=== PATIENT | male | born 1965 | race Caucasian/White ===

== ENCOUNTER 2021-06-24 15:01 | Emergency (ER) | payer BC, OTHER ==
[2021-06-24 15:19] VITALS: TEMP 98.4
[2021-06-24] MEDS ORDERED: SODIUM CHLORIDE 0.9% 500 ML 500 ML IV STA (16:26)
[2021-06-24] MEDS ORDERED: HYDROmorphone 1 MG/ML 1 ML SYRINGE IVP STA (16:26)
[2021-06-24] MEDS ORDERED: ONDANSETRON 4 MG/2 ML VIAL IVP STA (16:26)
[2021-06-24] MEDS ORDERED: PANTOPRAZOLE 40 MG/10 ML VIAL IVP STA (16:27)
[2021-06-24 16:51] LABS: Anisocytosis Slight; Basophils % (A) 0 %; Eosinophils % (A) 0 %; HCT 30.9 % (39.0-53.0); Hypochromasia Slight; Lymphocytes # (A) 0.9 k/uL (1.0-4.8); Lymphocytes % (A) 7 %; MCH 32.3 pg (25.0-35.0); MCHC 32.2 g/dL (31.0-37.0); MCV 100.2 fL (80.0-100.0); Macrocytosis Moderate; Mean Platelet Volume 7.6; Monocytes # (A) 0.6 k/uL (0-1.0); Monocytes % (A) 5 %; Neutrophils % (A) 86 %; Platelet Count 232 k/uL (150-450); RBC 3.09 m/uL (4.30-5.90); RDW 18.5 % (11.5-15.5); WBC 12.9 k/uL (3.8-10.6)
[2021-06-24 16:54] LABS: Appearance,Urine Clear (Clear); Bilirubin,Urine Negative (Negative); Blood,Urine Negative (Negative); Color,Urine Yellow; Glucose,Urine (UA) Negative (Negative); Ketones,Urine Negative (Negative); Leukocyte Esterase,Urine Negative (Negative); Nitrite,Urine Negative (Negative); PH, Urine 6.5 (5.0-8.0); Protein,Urine Negative (Negative); Specific Gravity,Urine 1.008 (1.001-1.035); Urobilinogen,Urine <2.0 mg/dL (<2.0)
[2021-06-24 16:59] VITALS: RESP 22
[2021-06-24 17:00] LABS: ALT 11 U/L (4-49); AST 24 U/L (17-59); African American GFR (CKD) >90 (>60 ml/min/1.73 sqM); Albumin 3.6 g/dL (3.5-5.0); Alkaline Phosphatase 49 U/L (38-126); Anion Gap 7 mmol/L; Blood Urea Nitrogen 7 mg/dL (9-20); Calcium 8.3 mg/dL (8.4-10.2); Carbon Dioxide 27 mmol/L (22-30); Chloride 94 mmol/L (98-107); Glucose 136 mg/dL (74-99); Lipase 104 U/L (23-300); Non-African American GFR(CKD) >90 (>60 ml/min/1.73 sqM); Potassium 3.8 mmol/L (3.5-5.1); Sodium 128 mmol/L (137-145); Total Bilirubin 0.4 mg/dL (0.2-1.3); Total Protein 6.3 g/dL (6.3-8.2)
--- NOTE | 2021-06-24 17:29 | ED ---
Abdominal Pain HPI - General Chief Complaint: Abdominal Pain Stated Complaint: irregular labs Time Seen by Provider: 06/24/21 16:09 Source: patient Mode of arrival: wheelchair Limitations: no limitations - History of Present Illness Initial Comments: 55 year-old male patient presented to the emergency department today for evaluation of upper abdominal pain and nausea. Patient states symptoms have been going on for the last 2 weeks but worsened over the last couple of days. Denies radiation of the pain through to his back. States pain worsens with eating certain foods. He was seen and evaluated at [facility] last night and it has CT abdomen and pelvis which showed some constipation no other abnormalities. He did have decreased hemoglobin and positive occult blood at their facility. They wanted to transfer him for GI evaluation but he declined transfer, so they recommended he come to this facility so he could be evaluated by GI. Does admit to drinking alcohol daily. Denies history of abdominal surgery. He is a current smoker, maintained on 4 L nasal cannula for COPD. - Related Data Home Medications Medication Instructions Recorded Confirmed ALPRAZolam [Xanax] 1 mg PO BID PRN 10/30/14 06/24/21 Albuterol Nebulized [Ventolin 2.5 mg INHALATION RT-QID 10/30/14 06/24/21 Nebulized] HYDROcodone/APAP 7.5-325MG [[place] 1 tab PO QID PRN 10/30/14 06/24/21 7.5-325] Metoprolol Succinate [Toprol XL] 25 mg PO DAILY 10/30/14 06/24/21 Simvastatin [Zocor] 40 mg PO DAILY 10/30/14 06/24/21 Albuterol Sulfate [Proair Hfa] 2 puff INHALATION RT-Q4H PRN 06/24/21 06/24/21 Fluticasone Propionate [Flovent 2 puff INHALATION RT-BID 06/24/21 06/24/21 Hfa 220 mcg] Montelukast [Singulair] 10 mg PO DAILY 06/24/21 06/24/21 Nicotine 7Mg/24Hr Patch [Habitrol] 1 patch TRANSDERM DAILY PRN 06/24/21 06/24/21 predniSONE [Deltasone] 10 mg PO BID 06/24/21 06/24/21 Allergies Allergy/AdvReac Type Severity Reaction Status Date / Time KAETLYN Inhibitors Allergy Anaphylaxis Verified 06/24/21 16:50 Review of Systems ROS Statement: Those systems with pertinent positive or pertinent negative responses have been documented in the HPI. ROS Other: All systems not noted in ROS Statement are negative. Past Medical History Past Medical History: Asthma, COPD, Hyperlipidemia, Hypertension, Musculoskeletal Disorder, Osteoarthritis (OA) Additional Past Medical History / Comment(s): CARDIAC ANEURYSM, ARTHRITIS RT WRIST & ANKLE, HX OF BACK FX., FREQUENT DIARRHEA-BLOOD IN STOOL History of Any Multi-Drug Resistant Organisms: None Reported Past Surgical History: Hernia Repair, Orthopedic Surgery Additional Past Surgical History / Comment(s): MULTIPLE RT WRIST SURGERYS AND THEN A FUSION., MULTIPLE RT HEEL SURGERYS AND THEN A FUSION., ING HERNIA REPAIR, LIPOMA (11/2014). Past Anesthesia/Blood Transfusion Reactions: No Reported Reaction Past Psychological History: Anxiety Smoking Status: Current every day smoker Past Alcohol Use History: Daily Past Drug Use History: None Reported - Past Family History Father Family Medical History: Myocardial Infarction ([place]) Mother Family Medical History: Myocardial Infarction ([place]) General Exam Limitations: no limitations General appearance: alert, in no apparent distress, other (This is a well- developed, well-nourished adult male in no acute distress.) Eye exam: Present: normal appearance, PERRL, EOMI. Absent: scleral icterus, conjunctival injection, periorbital swelling Respiratory exam: Present: normal lung sounds bilaterally. Absent: respiratory distress, wheezes, rales, rhonchi, stridor Cardiovascular Exam: Present: regular rate, normal rhythm, normal heart sounds. Absent: systolic murmur, diastolic murmur, rubs, gallop, clicks GI/Abdominal exam: Present: soft, tenderness (Midepigastric), normal bowel sounds. Absent: distended, guarding, rebound, rigid Neurological exam: Present: alert, oriented X3, CN II-XII intact Psychiatric exam: Present: normal affect, normal mood Skin exam: Present: warm, dry, intact, normal color. Absent: rash Course Vital Signs 06/24/21 06/24/21 06/24/21 15:15 16:58 18:09 Temperature 98.4 F Pulse Rate 124 H 105 H 92 Respiratory 20 22 22 Rate Blood Pressure 102/68 105/84 126/81 O2 Sat by Pulse 97 98 96 Oximetry Medical Decision Making - Medical Decision Making 55-year-old male patient presented to the emergency department today for evaluation of midepigastric abdominal pain. Physical examination did reveal midepigastric tenderness. Labs reviewed and did reveal decreased hemoglobin. Lactic acid was 3.8. He did have CT abdomen and pelvis at [facility] yesterday and showed evidence for constipation, his occult blood was positive at the hospital. He does report dark stools. Is taking Pepto-Bismol. We will admit to see GI however we do not have GI specialty at this time. He'll be transferred to [facility] for further evaluation. Patient is agr eeable this plan. Dr. Ahuja is accepting. - Lab Data Result diagrams: 06/24/21 16:39 06/24/21 16:39 Lab Results 06/24/21 06/24/21 06/24/21 Range/Units 16:39 16:39 16:39 WBC 12.9 H (3.8-10.6) k/uL RBC 3.09 L (4.30-5.90) m/uL Hgb 10.0 L (13.0-17.5) gm/dL Hct 30.9 L (39.0-53.0) % MCV 100.2 H (80.0-100.0) fL MCH 32.3 (25.0-35.0) pg MCHC 32.2 (31.0-37.0) g/dL RDW 18.5 H (11.5-15.5) % Plt Count 232 (150-450) k/uL MPV 7.6 Neutrophils % 86 % Lymphocytes % 7 % Monocytes % 5 % Eosinophils % 0 % Basophils % 0 % Neutrophils # 11.0 H (1.3-7.7) k/uL Lymphocytes # 0.9 L (1.0-4.8) k/uL Monocytes # 0.6 (0-1.0) k/uL Eosinophils # 0.0 (0-0.7) k/uL Basophils # 0.0 (0-0.2) k/uL Hypochromasia Slight Anisocytosis Slight Macrocytosis Moderate Sodium 128 L (137-145) mmol/L Potassium 3.8 (3.5-5.1) mmol/L Chloride 94 L (98-107) mmol/L Carbon Dioxide 27 (22-30) mmol/L Anion Gap 7 mmol/L BUN 7 L (9-20) mg/dL Creatinine 0.52 L (0.66-1.25) mg/dL Est GFR (CKD-EPI)AfAm >90 (>60 ml/min/1.73 sqM) Est GFR (CKD-EPI)NonAf >90 (>60 ml/min/1.73 sqM) Glucose 136 H (74-99) mg/dL Lactic Ac Sepsis Rflx Plasma Lactic Acid Jorge Luis (0.7-2.0) mmol/L Calcium 8.3 L (8.4-10.2) mg/dL Total Bilirubin 0.4 (0.2-1.3) mg/dL AST 24 (17-59) U/L ALT 11 (4-49) U/L Alkaline Phosphatase 49 (38-126) U/L Total Protein 6.3 (6.3-8.2) g/dL Albumin 3.6 (3.5-5.0) g/dL Lipase 104 (23-300) U/L Urine Color Yellow Urine Appearance Clear (Clear) Urine pH 6.5 (5.0-8.0) Ur Specific [place] 1.008 (1.001-1.035) Urine Protein Negative (Negative) Urine Glucose (UA) Negative (Negative) Urine Ketones Negative (Negative) Urine Blood Negative (Negative) Urine Nitrite Negative (Negative) Urine Bilirubin Negative (Negative) Urine Urobilinogen <2.0 (<2.0) mg/dL Ur Leukocyte Esterase Negative (Negative) 06/24/21 06/24/21 Range/Units 16:39 17:10 WBC (3.8-10.6) k/uL RBC (4.30-5.90) m/uL Hgb (13.0-17.5) gm/dL Hct (39.0-53.0) % MCV (80.0-100.0) fL MCH (25.0-35.0) pg MCHC (31.0-37.0) g/dL RDW (11.5-15.5) % Plt Count (150-450) k/uL MPV Neutrophils % % Lymphocytes % % Monocytes % % Eosinophils % % Basophils % % Neutrophils # (1.3-7.7) k/uL Lymphocytes # (1.0-4.8) k/uL Monocytes # (0-1.0) k/uL Eosinophils # (0-0.7) k/uL Basophils # (0-0.2) k/uL Hypochromasia Anisocytosis Macrocytosis Sodium (137-145) mmol/L Potassium (3.5-5.1) mmol/L Chloride (98-107) mmol/L Carbon Dioxide (22-30) mmol/L Anion Gap mmol/L BUN (9-20) mg/dL Creatinine (0.66-1.25) mg/dL Est GFR (CKD-EPI)AfAm (>60 ml/min/1.73 sqM) Est GFR (CKD-EPI)NonAf (>60 ml/min/1.73 sqM) Glucose (74-99) mg/dL Lactic Ac Sepsis Rflx Y Plasma Lactic Acid Jorge Luis 3.8 H* (0.7-2.0) mmol/L Calcium (8.4-10.2) mg/dL Total Bilirubin (0.2-1.3) mg/dL AST (17-59) U/L ALT (4-49) U/L Alkaline Phosphatase (38-126) U/L Total Protein (6.3-8.2) g/dL Albumin (3.5-5.0) g/dL Lipase (23-300) U/L Urine Color Urine Appearance (Clear) Urine pH (5.0-8.0) Ur Specific [place] (1.001-1.035) Urine Protein (Negative) Urine Glucose (UA) (Negative) Urine Ketones (Negative) Urine Blood (Negative) Urine Nitrite (Negative) Urine Bilirubin (Negative) Urine Urobilinogen (<2.0) mg/dL Ur Leukocyte Esterase (Negative) Disposition Clinical Impression: Midepigastric pain, GI bleed Disposition: ADMITTED IP TO THIS [facility] Condition: Serious Referrals: Sekou Vasquez MD [Primary Care Provider] - 1-2 days Decision to Admit Reason: Admit from EC Decision Date: 06/24/21 Decision Time: 20:21
[2021-06-24 18:12] VITALS: BP 126/81; PULSE 92
[2021-06-24] MEDS ORDERED: LORazepam 2 MG/ML INJ IV STA (18:18)
[2021-06-24] MEDS ORDERED: NICOTINE 21MG/24HR PATCH TRANSDERM STA (18:18)
== END 2021-06-24 21:27 | disposition other institution (70) ==
LOC: EC 15:01
DX: R10.13 Epigastric pain (principal); J44.9 Chronic obstructive pulmonary disease, unspecified; E78.5 Hyperlipidemia, unspecified; M19.90 Unspecified osteoarthritis, unspecified site; I10 Essential (primary) hypertension; F41.9 Anxiety disorder, unspecified; F17.200 Nicotine dependence, unspecified, uncomplicated; Z72.89 Other problems related to lifestyle; Z79.51 Long term (current) use of inhaled steroids
CPT/HCPCS: 36415; 80053; 83605; 83690; 85025; 81003; 87635; 99284; 96374; 96375 ×3; S4990; J2060; J2405; J1170; C9113

== ENCOUNTER 2021-06-29 21:42 | Emergency (ER) | payer OTHER ==
[2021-06-29 22:11] VITALS: TEMP 98.2
[2021-06-30] MEDS ORDERED: ALPRAZolam 1 MG TAB PO STA (01:20)
[2021-06-30] MEDS ORDERED: HYDROcodone/APAP 7.5-325MG 1 EACH TAB PO ONE (01:20)
[2021-06-30 01:52] LABS: Anisocytosis Slight; Basophils # (A) 0.1 k/uL (0-0.2); Basophils % (A) 1 %; Eosinophils # (A) 0.1 k/uL (0-0.7); Eosinophils % (A) 1 %; HCT 31.2 % (39.0-53.0); HGB 10.2 gm/dL (13.0-17.5); Hypochromasia Slight; Lymphocytes # (A) 1.6 k/uL (1.0-4.8); Lymphocytes % (A) 22 %; MCH 33.1 pg (25.0-35.0); MCHC 32.5 g/dL (31.0-37.0); MCV 101.9 fL (80.0-100.0); Macrocytosis Moderate; Mean Platelet Volume 9.1; Monocytes # (A) 0.9 k/uL (0-1.0); Monocytes % (A) 12 %; Neutrophils # (A) 4.6 k/uL (1.3-7.7); Neutrophils % (A) 61 %; Platelet Count 219 k/uL (150-450); RBC 3.06 m/uL (4.30-5.90); RDW 18.2 % (11.5-15.5); WBC 7.6 k/uL (3.8-10.6)
--- NOTE | 2021-06-30 01:55 | XR ---
EXAMINATION TYPE: XR chest 1V portable DATE OF EXAM: 06/30/2021 COMPARISON: NONE HISTORY: Pain TECHNIQUE: Single view FINDINGS: There is some atelectasis at the left lung base. There is no heart failure. Heart size is n ormal. There are chest leads. The bony thorax is intact. IMPRESSION: There is some elevated left diaphragm with some atelectasis left lung base without change compared to CT scan of 06/23/2021. Normal heart.
[2021-06-30 02:11] LABS: Appearance,Urine Clear (Clear); Bilirubin,Urine Negative (Negative); Blood,Urine Negative (Negative); Color,Urine Yellow; Glucose,Urine (UA) Negative (Negative); Ketones,Urine Negative (Negative); Leukocyte Esterase,Urine Negative (Negative); Nitrite,Urine Negative (Negative); PH, Urine 8.5 (5.0-8.0); Protein,Urine Negative (Negative); Specific Gravity,Urine 1.009 (1.001-1.035); Urobilinogen,Urine <2.0 mg/dL (<2.0)
[2021-06-30 02:12] LABS: ALT 9 U/L (4-49); AST 30 U/L (17-59); African American GFR (CKD) >90 (>60 ml/min/1.73 sqM); Albumin 3.4 g/dL (3.5-5.0); Alkaline Phosphatase 57 U/L (38-126); Anion Gap 7 mmol/L; Blood Urea Nitrogen 3 mg/dL (9-20); Calcium 8.9 mg/dL (8.4-10.2); Carbon Dioxide 30 mmol/L (22-30); Chloride 95 mmol/L (98-107); Glucose 87 mg/dL (74-99); Non-African American GFR(CKD) >90 (>60 ml/min/1.73 sqM); Potassium 3.9 mmol/L (3.5-5.1); Sodium 132 mmol/L (137-145); Total Bilirubin 0.7 mg/dL (0.2-1.3); Total Protein 6.1 g/dL (6.3-8.2)
[2021-06-30] MEDS ORDERED: FUROSEMIDE 10 MG/ML 4 ML VIAL IV STA (02:35)
[2021-06-30 04:04] VITALS: BP 114/85; PULSE 88; RESP 17
--- NOTE | 2021-06-30 04:07 | ED ---
Extremity Problem HPI - General Chief complaint: Extremity Problem,Nontraumatic Stated complaint: Leg Swelling, Edema Time Seen by Provider: 06/30/21 00:50 Source: patient Mode of arrival: wheelchair Limitations: no limitations - History of Present Illness Initial comments: Patient is a 55-year-old man who presents to have evaluation of bilateral lower extremity edema. The patient states that he had been admitted on the hospital on June 24, staying until 2 days ago to have an upper endoscopy. The patient notes that his swelling had started over that period of time and he went home with the edema. Patient states there is just a little bit of shortness of breath if he lies flat. Patient also notes she has recently stopped drinking alcohol. MD Complaint: extremity swelling -: days(s) Location: bilateral lower extremity History of Same: No Radiation: none Quality: dull Consistency: constant Improves with: nothing Associated Symptoms: denies other symptoms - Related Data Home Medications Medication Instructions Recorded Confirmed ALPRAZolam [Xanax] 1 mg PO BID PRN 10/30/14 06/24/21 Albuterol Nebulized [Ventolin 2.5 mg INHALATION RT-QID 10/30/14 06/24/21 Nebulized] HYDROcodone/APAP 7.5-325MG [[place] 1 tab PO QID PRN 10/30/14 06/24/21 7.5-325] Metoprolol Succinate [Toprol XL] 25 mg PO DAILY 10/30/14 06/24/21 Simvastatin [Zocor] 40 mg PO DAILY 10/30/14 06/24/21 Albuterol Sulfate [Proair Hfa] 2 puff INHALATION RT-Q4H PRN 06/24/21 06/24/21 Fluticasone Propionate [Flovent 2 puff INHALATION RT-BID 06/24/21 06/24/21 Hfa 220 mcg] Montelukast [Singulair] 10 mg PO DAILY 06/24/21 06/24/21 Nicotine 7Mg/24Hr Patch [Habitrol] 1 patch TRANSDERM DAILY PRN 06/24/21 06/24/21 predniSONE [Deltasone] 10 mg PO BID 06/24/21 06/24/21 Previous Rx's Medication Instructions Recorded Furosemide [Lasix] 20 mg PO DAILY #10 tablet 06/30/21 Allergies Allergy/AdvReac Type Severity Reaction Status Date / Time KATELYN Inhibitors Allergy Anaphylaxis Verified 06/29/21 22:11 Review of Systems ROS Statement: Those systems with pertinent positive or pertinent negative responses have been documented in the HPI. ROS Other: All systems not noted in ROS Statement are negative. Constitutional: Denies: fever, chills, weakness Respiratory: Denies: cough, dyspnea Cardiovascular: Reports: orthopnea, edema. Denies: chest pain, palpitations, syncope Gastrointestinal: Denies: abdominal pain, nausea, vomiting, diarrhea, constipation, melena, hematochezia Genitourinary: Denies: dysuria, hematuria Musculoskeletal: Denies: back pain Skin: Denies: rash Neurological: Denies: headache, weakness Past Medical History Past Medical History: Asthma, COPD, Hyperlipidemia, Hypertension, Musculoskeletal Disorder, Osteoarthritis (OA) Additional Past Medical History / Comment(s): CARDIAC ANEURYSM, ARTHRITIS RT WRIST & ANKLE, HX OF BACK FX., FREQUENT DIARRHEA-BLOOD IN STOOL History of Any Multi-Drug Resistant Organisms: None Reported Past Surgical History: Hernia Repair, Orthopedic Surgery Additional Past Surgical History / Comment(s): MULTIPLE RT WRIST SURGERYS AND THEN A FUSION., MULTIPLE RT HEEL SURGERYS AND THEN A FUSION., ING HERNIA REPAIR, LIPOMA (11/2014). Past Anesthesia/Blood Transfusion Reactions: No Reported Reaction Past Psychological History: Anxiety Smoking Status: Current every day smoker Past Alcohol Use History: Daily Past Drug Use History: None Reported - Past Family History Father Family Medical History: Myocardial Infarction ([place]) Mother Family Medical History: Myocardial Infarction ([place]) General Exam Limitations: no limitations General appearance: alert, in no apparent distress Head exam: Present: atraumatic, normocephalic Eye exam: Present: normal appearance. Absent: scleral icterus, conjunctival injection Neck exam: Present: normal inspection Respiratory exam: Present: normal lung sounds bilaterally. Absent: respiratory distress, wheezes, rales, rhonchi, stridor Cardiovascular Exam: Present: regular rate, normal rhythm, normal heart sounds. Absent: systolic murmur, diastolic murmur, rubs, gallop GI/Abdominal exam: Present: soft. Absent: distended, tenderness, guarding, rebound, rigid, mass Extremities exam: Present: normal inspection, normal capillary refill, pedal edema. Absent: calf tenderness Back exam: Present: normal inspection. Absent: CVA tenderness (R), CVA tende rness (L) Neurological exam: Present: alert Skin exam: Present: warm, dry, intact, normal color. Absent: rash Course Vital Signs 06/29/21 06/30/21 06/30/21 22:06 00:00 00:20 Temperature 98.2 F Pulse Rate 108 H 91 Respiratory 18 22 21 Rate Blood Pressure 121/81 131/102 O2 Sat by Pulse 100 100 Oximetry 06/30/21 06/30/21 03:20 03:40 Temperature Pulse Rate 82 88 Respiratory 17 17 Rate Blood Pressure 116/86 114/85 O2 Sat by Pulse 99 99 Oximetry Medical Decision Making - Medical Decision Making Patient's 55-year-old man presenting with bilateral leg edema. This seems correlate with the IV fluid he recently had. Suspect the patient also has a little bit of underlying liver dysfunction and therefore low protein levels. I discussed stopping drinking. We'll give patient Lasix as outpatient and close follow-up. He states he would rather go home than stay in the hospital as she was just in. Return parameters discussed. - Lab Data Result diagrams: 06/30/21 00:00 06/30/21 00:00 Lab Results 06/30/21 06/30/21 06/30/21 Range/Units 00:00 00:00 00:00 WBC 7.6 (3.8-10.6) k/uL RBC 3.06 L (4.30-5.90) m/uL Hgb 10.2 L (13.0-17.5) gm/dL Hct 31.2 L (39.0-53.0) % MCV 101.9 H (80.0-100.0) fL MCH 33.1 (25.0-35.0) pg MCHC 32.5 (31.0-37.0) g/dL RDW 18.2 H (11.5-15.5) % Plt Count 219 (150-450) k/uL MPV 9.1 Neutrophils % 61 % Lymphocytes % 22 % Monocytes % 12 % Eosinophils % 1 % Basophils % 1 % Neutrophils # 4.6 (1.3-7.7) k/uL Lymphocytes # 1.6 (1.0-4.8) k/uL Monocytes # 0.9 (0-1.0) k/uL Eosinophils # 0.1 (0-0.7) k/uL Basophils # 0.1 (0-0.2) k/uL Hypochromasia Slight Anisocytosis Slight Macrocytosis Moderate D-Dimer 1.36 H (<0.60) mg/L FEU Sodium (137-145) mmol/L Potassium (3.5-5.1) mmol/L Chloride (98-107) mmol/L Carbon Dioxide (22-30) mmol/L Anion Gap mmol/L BUN (9-20) mg/dL Creatinine (0.66-1.25) mg/dL Est GFR (CKD-EPI)AfAm (>60 ml/min/1.73 sqM) Est GFR (CKD-EPI)NonAf (>60 ml/min/1.73 sqM) Glucose (74-99) mg/dL Calcium (8.4-10.2) mg/dL Total Bilirubin (0.2-1.3) mg/dL AST (17-59) U/L ALT (4-49) U/L Alkaline Phosphatase (38-126) U/L Troponin I (0.000-0.034) ng/mL NT-Pro-B Natriuret Pep pg/mL Total Protein (6.3-8.2) g/dL Albumin (3.5-5.0) g/dL Urine Color Yellow Urine Appearance Clear (Clear) Urine pH 8.5 H (5.0-8.0) Ur Specific [place] 1.009 (1.001-1.035) Urine Protein Negative (Negative) Urine Glucose (UA) Negative (Negative) Urine Ketones Negative (Negative) Urine Blood Negative (Negative) Urine Nitrite Negative (Negative) Urine Bilirubin Negative (Negative) Urine Urobilinogen <2.0 (<2.0) mg/dL Ur Leukocyte Esterase Negative (Negative) 06/30/21 06/30/21 06/30/21 Range/Units 00:00 00:00 00:00 WBC (3.8-10.6) k/uL RBC (4.30-5.90) m/uL Hgb (13.0-17.5) gm/dL Hct (39.0-53.0) % MCV (80.0-100.0) fL MCH (25.0-35.0) pg MCHC (31.0-37.0) g/dL RDW (11.5-15.5) % Plt Count (150-450) k/uL MPV Neutrophils % % Lymphocytes % % Monocytes % % Eosinophils % % Basophils % % Neutrophils # (1.3-7.7) k/uL Lymphocytes # (1.0-4.8) k/uL Monocytes # (0-1.0) k/uL Eosinophils # (0-0.7) k/uL Basophils # (0-0.2) k/uL Hypochromasia Anisocytosis Macrocytosis D-Dimer (<0.60) mg/L FEU Sodium 132 L (137-145) mmol/L Potassium 3.9 (3.5-5.1) mmol/L Chloride 95 L (98-107) mmol/L Carbon Dioxide 30 (22-30) mmol/L Anion Gap 7 mmol/L BUN 3 L (9-20) mg/dL Creatinine 0.44 L (0.66-1.25) mg/dL Est GFR (CKD-EPI)AfAm >90 (>60 ml/min/1.73 sqM) Est GFR (CKD-EPI)NonAf >90 (>60 ml/min/1.73 sqM) Glucose 87 (74-99) mg/dL Calcium 8.9 (8.4-10.2) mg/dL Total Bilirubin 0.7 (0.2-1.3) mg/dL AST 30 (17-59) U/L ALT 9 (4-49) U/L Alkaline Phosphatase 57 (38-126) U/L Troponin I <0.012 (0.000-0.034) ng/mL NT-Pro-B Natriuret Pep 954 pg/mL Total Protein 6.1 L (6.3-8.2) g/dL Albumin 3.4 L (3.5-5.0) g/dL Urine Color Urine Appearance (Clear) Urine pH (5.0-8.0) Ur Specific [place] (1.001-1.035) Urine Protein (Negative) Urine Glucose (UA) (Negative) Urine Ketones (Negative) Urine Blood (Negative) Urine Nitrite (Negative) Urine Bilirubin (Negative) Urine Urobilinogen (<2.0) mg/dL Ur Leukocyte Esterase (Negative) Disposition Clinical Impression: Edema Disposition: HOME SELF-CARE Condition: Stable Instructions (If sedation given, give patient instructions): Leg Edema (ED) Additional Instructions: As we discussed, follow with the specialist to have further studies into your liver function. Stop drinking any alcohol. Avoid using acetaminophen/Tylenol until you are cleared. Scheduled to have the duplex Doppler of the legs today. Prescriptions: Furosemide [Lasix] 20 mg PO DAILY #10 tablet Is patient prescribed a controlled substance at d/c from ED?: No Referrals: Sekou Vasquez MD [Primary Care Provider] - 1-2 days Sadie Srinivasan MD [STAFF PHYSICIAN] - 1-2 days
[2021-06-30] MEDS ORDERED: traMADol 50 MG STARTER PACK 3 TAB BTL PO STA (04:08)
[2021-06-30] MEDS ORDERED: ENOXAPARIN 60 MG/0.6 ML SYRINGE SQ STA (04:31)
== END 2021-06-30 04:52 | disposition home or self-care (01) ==
LOC: EC 21:42
DX: R60.0 Localized edema (principal); J44.9 Chronic obstructive pulmonary disease, unspecified; E78.5 Hyperlipidemia, unspecified; I10 Essential (primary) hypertension; M19.90 Unspecified osteoarthritis, unspecified site; F41.9 Anxiety disorder, unspecified; F17.200 Nicotine dependence, unspecified, uncomplicated
CPT/HCPCS: 99284; 96374; 96372; 36415; 85379; 83880; 80053; 84484; 85025; 81003; 71045; J1940; J1650

== ENCOUNTER 2022-07-28 17:00 | Emergency (ER) | payer OTHER ==
[2022-07-28 17:09] VITALS: TEMP 97.9
[2022-07-28 18:13] VITALS: BP 122/89; PULSE 76; RESP 20
[2022-07-28] MEDS ORDERED: SODIUM CHLORIDE 0.9% 500 ML 500 ML IV STA (18:13)
[2022-07-28] MEDS ORDERED: HYDROmorphone 0.5 MG/0.5 ML SYRINGE IVP STA (18:13)
[2022-07-28] MEDS ORDERED: SODIUM CHLORIDE 0.9% 1,000 ML IV STA (18:13)
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
[2022-07-28 18:51] LABS: African American GFR (CKD) >90 (>60 ml/min/1.73 sqM); Anion Gap 6 mmol/L; Blood Urea Nitrogen 3 mg/dL (9-20); Calcium 9.1 mg/dL (8.4-10.2); Carbon Dioxide 37 mmol/L (22-30); Chloride 97 mmol/L (98-107); Glucose 71 mg/dL (74-99); Non-African American GFR(CKD) >90 (>60 ml/min/1.73 sqM); Potassium 3.7 mmol/L (3.5-5.1); Sodium 140 mmol/L (137-145)
[2022-07-28 19:21] LABS: Basophils # (A) 0.1 k/uL (0-0.2); Basophils % (A) 1 %; Eosinophils # (A) 0.1 k/uL (0-0.7); Eosinophils % (A) 1 %; HCT 39.8 % (39.0-53.0); HGB 12.5 gm/dL (13.0-17.5); Hypochromasia Slight; Lymphocytes # (A) 1.8 k/uL (1.0-4.8); Lymphocytes % (A) 20 %; MCH 29.2 pg (25.0-35.0); MCHC 31.5 g/dL (31.0-37.0); MCV 92.8 fL (80.0-100.0); Mean Platelet Volume 11.6; Monocytes # (A) 0.8 k/uL (0-1.0); Monocytes % (A) 8 %; Neutrophils # (A) 6.1 k/uL (1.3-7.7); Neutrophils % (A) 67 %; Platelet Count 139 k/uL (150-450); RBC 4.29 m/uL (4.30-5.90); RDW 15.7 % (11.5-15.5); WBC 9.2 k/uL (3.8-10.6)
== END 2022-07-28 19:32 | disposition other institution (70) ==
LOC: EC 17:00
DX: T20.29XA Burn of second degree of multiple sites of head, face, and neck, initial encounter (principal); T31.0 Burns involving less than 10% of body surface; I10 Essential (primary) hypertension; E78.5 Hyperlipidemia, unspecified; J44.9 Chronic obstructive pulmonary disease, unspecified; M19.90 Unspecified osteoarthritis, unspecified site; F41.9 Anxiety disorder, unspecified; F17.200 Nicotine dependence, unspecified, uncomplicated; Z79.51 Long term (current) use of inhaled steroids; Z79.52 Long term (current) use of systemic steroids; Z79.899 Other long term (current) drug therapy; Z88.8 Allergy status to other drugs, medicaments and biological substances; X08.8XXA Exposure to other specified smoke, fire and flames, initial encounter; Y92.009 Unspecified place in unspecified non-institutional (private) residence as the place of occurrence of the external cause
CPT/HCPCS: 36415; 80048; 85025; 99284; 96374; 96361; J1170